=== PATIENT | male | born 1995 | race Caucasian/White ===

== ENCOUNTER 2019-05-28 13:24 | Emergency (ER) | payer OTHER, SELFPAY ==
--- NOTE | ~2019-05-28 | XR_ITS ---
EXAMINATION: XR ankle LT min 3V DATE: 05/28/2019 13:43 INDICATION: Left ankle pain. No injury. TECHNIQUE: 4 views of left ankle were obtained. COMPARISON: None. FINDINGS: Bone alignment is normal. No fracture. Joint spaces are well maintained. IMPRESSION: 1. Normal left ankle. Reviewed, dictated and finalized at location A. OPERATOR IMPRESSION: 1. Normal left ankle.
[2019-05-28 13:28] VITALS: BP 128/75; PULSE 70; RESP 16; TEMP 36.7; O2SAT 100
--- NOTE | 2019-05-28 13:47 | ED.LOWEXIN ---
HPI - Extremity Injury (Lower) General Chief Complaint: Extremity Injury, Lower Stated Complaint: L FOOT PAIN Time Seen by Provider: 05/28/19 13:45 Source: patient and family Mode of arrival: ambulatory Limitations: no limitations History of Present Illness HPI Narrative: 23-year-old male presents for evaluation of left medial ankle pain that developed 5 to 6 days ago. He reports pain is only with walking. Reports pain is a burning sensation. Denies any bruising, swelling, discoloration, popping, numbness, tingling. He has used ice for symptoms. 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 Denies any prior left foot and ankle injuries or surgeries. Related Data Home Medications Medication Instructions Recorded Confirmed fexofenadine [[facility] Allergy] 180 mg PO DAILY 05/28/19 05/28/19 Allergies Allergy/AdvReac Type Severity Reaction Status Date / Time tree nut Allergy Unknown Verified 09/20/13 17:05 Review of Systems Review of Systems: Narrative: CONSTITUTIONAL: Denies fever, chills, weight loss, or sweats. EYES: Denies visual changes, redness, or discharge. ENT: Denies rhinorrhea, congestion, sore throat, or otalgia. CARDIOVASCULAR: Denies chest pain, palpitations, or edema. RESPIRATORY: Denies cough or dyspnea. GASTROINTESTINAL: Denies abdominal pain, nausea, vomiting, or diarrhea. GENITOURINARY: Denies dysuria, hematuria, urinary frequency, malordous urine SKIN: Denies rash or itching. MUSCULOSKELETAL: Denies back pain, myalgia, swelling. Reports pain to left medial ankle, distally to medial malleolus PSYCHIATRIC: Denies anxiety or depression. All systems reviewed & are unremarkable except as noted in HPI and below PMFSH Comments At the time of my signature, I agree with nursing past medical, surgical, social and family history. There is no relevant family history pertinent to the presenting complaint. Exam Narrative: Exam Narrative: GENERAL: No distress, well appearing, well nourished, alert and calm HEAD: Normocephalic, atraumatic. EYES: Pupils equal, round. Extraocular movements intact. Conjunctivae without redness or drainage. NECK: Supple. No lymphadenopathy. RESPIRATORY: Airway patent. Chest clear to auscultation bilaterally. Breath sounds equal bilaterally. No retractions. CARDIOVASCULAR: Regular rate and rhythm. No murmurs, rubs, gallops, or clicks. Capillary refill <2 seconds. MUSCULOSKELETAL: Full range of motion of left lower extremity with no difficulty. strength grossly normal in all four extremities. No tenderness to palpation to left medial ankle where patient is complaining of pain. no edema. No swelling. No skin abrasion or break to integrity of skin to this area. Normal sensation throughout SKIN: Color normal. Warm and dry. No rashes. NEURO: Alert. Motor intact in all extremities. Muscle tone normal. PSYCHIATRIC: Responds appropriately to providers. Course Vital Signs Vital signs: Vital Signs Temperature 98.0 F 05/28/19 13:28 Pulse Rate 70 05/28/19 13:28 Respiratory Rate 16 05/28/19 13:28 Blood Pressure 128/75 05/28/19 13:28 Pulse Oximetry 100 05/28/19 13:28 Temperature 98.0 F 05/28/19 13:28 Pulse Rate 70 05/28/19 13:28 Respiratory Rate 16 05/28/19 13:28 Blood Pressure 128/75 05/28/19 13:28 Pulse Oximetry 100 05/28/19 13:28 Reviewed MDM - Extremity Injury (Lower) MDM Narrative Medical decision making narrative: Patients injury or pain is consistent with musculoskeletal etiology. No signs of neurological or vascular compromise on exam. Compartments and tissues are soft without signs of compartment syndrome. X-ray negative. Pain is felt appropriate for further evaluation on an outpatient basis. Differential Diagnosis Differential diagnosis: Likely ankle sprain and strain Medical Records Attestation: I reviewed the patient's medical records. Imaging Data Attestation: I personally reviewed an
== END 2019-05-28 14:08 | disposition home or self-care (01) ==
PROVIDERS: Emergency Provider Nurse Practitioner
DX: M25.572 Pain in left ankle and joints of left foot (principal)
CPT/HCPCS: 73610; 99203; G0463

== ENCOUNTER 2023-04-24 00:39 | Emergency (ER) | payer OTHER, SELFPAY ==
[2023-04-24 00:45] VITALS: BP 145/75; PULSE 70; RESP 16; TEMP 36.1; O2SAT 100
--- NOTE | 2023-04-24 01:21 | ED.GENADULT ---
HPI - General Adult General Chief complaint: Dental/Oral Stated complaint: tonsil bleeding Time Seen by Provider: 04/24/23 00:50 Source: patient Mode of arrival: ambulatory Limitations: no limitations History of Present Illness HPI narrative: This is a 27-year-old male who presents to the ED with chief complaints of tonsillar bleed beginning just prior to arrival. Patient states he was brushing his teeth and accidentally hit his tonsil and had a lot of bleeding at the time. Reports that he had sore throat last week but is seem to have gotten a little bit better this week. He has not had any other symptoms such as cough, congestion or runny nose. States that saltwater gargles were helping a lot. Denies fevers, chills or any further complaint. Related Data Home Medications Medication Instructions Recorded Confirmed fexofenadine 180 mg tablet 180 mg PO DAILY 05/28/19 05/28/19 (Angel[facility] Allergy) Allergies Allergy/AdvReac Type Severity Reaction Status Date / Time tree nut Allergy Unknown Verified 09/20/13 17:05 Review of Systems Review of Systems: All systems as dictated in HPI Exam Narrative: GENERAL: Well-appearing, well-nourished, and in no acute distress. HEAD: Normocephalic, atraumatic. EYES: PERRLA and EOMI. ENT: Bilateral tonsillar mild hypertrophy present. No exudates. What appears to be a blood clot is noted to the left posterior palatine tonsil. No active bleeding Nares clear, no rhinorrhea or epistaxis. Mucous membranes moist. NECK: Supple. No adenopathy or masses. CHEST: No respiratory distress. Clear to auscultation. No wheezes rales or rhonchi HEART: Regular rate and rhythm. No murmur heard. Normal peripheral pulses. ABDOMEN: Soft, nontender, nondistended, normal active bowel sounds. MSK: Normal range of motion. No edema. SKIN: Warm, dry, no rash. Bluish discoloration to the hands bilaterally with no particular pattern. NEURO: Alert and oriented x3. No focal deficits. PSYCH: Normal mood and affect. Course Vital Signs Vital signs: Vital Signs Temperature 97 F L 04/24/23 00:45 Pulse Rate 70 04/24/23 00:45 Respiratory Rate 16 04/24/23 00:45 Blood Pressure 145/75 H 04/24/23 00:45 Pulse Oximetry 100 04/24/23 00:45 Oxygen Delivery Room Air 04/24/23 00:45 Temperature 97 F L 04/24/23 00:45 Pulse Rate 70 04/24/23 00:45 Respiratory Rate 16 04/24/23 00:45 Blood Pressure 145/75 H 04/24/23 00:45 Pulse Oximetry 100 04/24/23 00:45 Oxygen Delivery Room Air 04/24/23 00:45 Medical Decision Making MDM Narrative Medical decision making narrative: This is a 27-year-old male who presents to the ED with chief complaint of a bleeding tonsil after hitting it with a toothbrush. Vitals are normal. Exam shows bilateral tonsillar hypertrophy that is mild. No exudates. There is a area of blood clot noted to the left posterior tonsil. Discussed with the patient that he likely did have tonsillitis, and that it was likely viral. Offered strep swab sent he is declining at this point. There is no active bleeding. Incidentally he did note some bluish discoloration to his hand and it is consistent with Raynaud phenomenon. Likely stress-induced. Otherwise exam is intact and he is stable for discharge home. Return precautions were given. Vital Signs Vital Signs: Vital Signs Temperature 97 F L 04/24/23 00:45 Pulse Rate 70 04/24/23 00:45 Respiratory Rate 16 04/24/23 00:45 Blood Pressure 145/75 H 04/24/23 00:45 Pulse Oximetry 100 04/24/23 00:45 Oxygen Delivery Room Air 04/24/23 00:45 Temperature 97 F L 04/24/23 00:45 Pulse Rate 70 04/24/23 00:45 Respiratory Rate 16 04/24/23 00:45 Blood Pressure 145/75 H 04/24/23 00:45 Pulse Oximetry 100 04/24/23 00:45 Oxygen Delivery Room Air 04/24/23 00:45 Discharge Plan Discharge Clinical Impression: Tonsillar bleed Patient Disposition: Home, Self-Care Condition:
== END 2023-04-24 01:38 | disposition home or self-care (01) ==
PROVIDERS: Emergency Provider Physician Assistant; PCP Family Medicine
DX: R04.1 Hemorrhage from throat (principal)
CPT/HCPCS: 99281